=== PATIENT | male | born 1960 | race Two or more races ===

== ENCOUNTER 2018-09-12 19:01 | Emergency (ER) | payer OTHER ==
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
== END 2018-09-12 21:30 ==
LOC: JD.ED 19:01
DX: F10.120 Alcohol abuse with intoxication, uncomplicated (principal); F17.210 Nicotine dependence, cigarettes, uncomplicated; Y90.8 Blood alcohol level of 240 mg/100 ml or more
CPT/HCPCS: 36415; 80053; 80306; 85025; 99283; G0480; 99282